=== PATIENT | female | born 1985 | race Caucasian/White ===

== ENCOUNTER 2020-04-28 15:46 | Inpatient (IN) ==
[2020-04-28 19:54] LABS: Hematocrit 38 % (35-47); Hemoglobin 17.2 g/dL (12.0-16.0); Mean Corpuscular HGB Conc 45 g/dL (31-36); Mean Corpuscular Hemoglobin 37 pg (27-31); Mean Corpuscular Volume 83 fL (80-97); Platelet Count 246 10^3/uL (150-450); Red Blood Count 4.65 10^6 /uL (3.70-4.87); Red Cell Distribution Width 14 % (10-15)
[2020-04-28 19:55] LABS: Nucleated Red Blood Cells % 0.1
[2020-04-28 20:05] LABS: HCG Pregnancy < 0.60 mIU/mL
[2020-04-28 20:13] LABS: ALT 55 U/L (7-52); Albumin 4.4 g/dL (3.2-5.2); Albumin/Globulin Ratio 2.1 (1-3); Alkaline Phosphatase 99 U/L (34-104); Calcium 9.6 mg/dL (8.6-10.3); Globulin 2.1 g/dL (2-4); Lipase 150 U/L (11.0-82.0); Total Protein 6.5 g/dL (6.4-8.9)
[2020-04-28 20:14] LABS: EGFR African American 110.1 (>60); Glucose 220 mg/dL (70-100)
[2020-04-28 20:50] LABS: Anion Gap 11 mmol/L (2-11); CO2 Carbon Dioxide 22 mmol/L (22-32)
[2020-04-28 21:02] LABS: ABS Basophils 0.1 10^3/ul (0-0.2); ABS Eosinophils 0.1 10^3/ul (0-0.6); ABS Lymphocytes 1.7 10^3/ul (1.0-4.8); ABS Monocytes 5.3 10^3/ul (0-0.8); ABS Neutrophils 4.7 10^3/ul (1.5-7.7)
[2020-04-28 21:13] LABS: BUN/Creatinine Ratio 10.8 (8-20); Blood Urea Nitrogen 8 mg/dL (6-24)
[2020-04-28 22:07] LABS: Albumin 4.2 g/dL (3.2-5.2); Albumin/Globulin Ratio 2.1 (1-3); Alkaline Phosphatase 99 U/L (34-104); Calcium 9.5 mg/dL (8.6-10.3); EGFR Non-African American 111.6 (>60); Glucose 196 mg/dL (70-100); HDL Cholesterol 15.7 mg/dL; Total Protein 6.2 g/dL (6.4-8.9)
[2020-04-28 23:05] LABS: Urine Appearance Cloudy; Urine Bilirubin Negative (Negative); Urine Blood 1+ (Negative); Urine Color Yellow; Urine Glucose 3+(>=500 mg/dL) (Negative); Urine Ketones 2+ (Negative); Urine Nitrite Negative (Negative); Urine Protein 1+(30 mg/dL) (Negative); Urine Specific Gravity 1.039 (1.010-1.030); Urine Urobilinogen Negative (Negative)
[2020-04-28 23:09] LABS: Urine Bacteria Absent (Absent); Urine Red Blood Cell 3+(>10/hpf) (Absent); Urine Squamous Epithelial Cell Present (Absent); Urine White Blood Cell Trace(0-5/hpf) (Absent)
[2020-04-28 23:13] LABS: ALT 38 U/L (7-52); Cholesterol 946 mg/dL; Triglycerides 8704 mg/dL
[2020-04-28 23:27] LABS: BUN/Creatinine Ratio 12.9 (8-20); Blood Urea Nitrogen 8 mg/dL (6-24)
[2020-04-28 23:44] LABS: LDL Cholesterol Direct 76 mg/dL
[2020-04-28] MEDS ORDERED: Iodixanol (CONTRAST) 320 MG/ML 100 ML SDV IV ONE (23:51)
[2020-04-29 00:33] LABS: Potassium, Whole Blood 3.7 mmol/L (3.4-4.5)
[2020-04-29] MEDS ORDERED: D5W 1/2 NS 1000 ml BAG 1,000 ML IV SCH (03:00)
[2020-04-29] MEDS ORDERED: Lactated Ringers 1000 ml BAG 2,000 ML IV ONE (03:00)
[2020-04-29] MEDS: Insulin Infusion 100unit/100mL 100 UNIT/100 ML BAG IV SCH ×3 (04:28→20:14)
[2020-04-29 04:56] LABS: C Reactive Protein 172.69 mg/L (<8.01); Magnesium 3.3 mg/dL (1.9-2.7)
[2020-04-29 07:19] LABS: Troponin I 0.01 ng/mL (<0.03)
[2020-04-29] MEDS: Enoxaparin 40 MG/0.4 ML SYR SUBCUT SCH (07:45)
[2020-04-29 10:42] LABS: Amylase 13 U/L (29-103); Anion Gap 8 mmol/L (2-11); CO2 Carbon Dioxide 20 mmol/L (22-32); Calcium 8.8 mg/dL (8.6-10.3); Chloride 97 mmol/L (101-111); EGFR African American 200.5 (>60); EGFR Non-African American 165.7 (>60); Glucose 270 mg/dL (70-100); Lipase 126 U/L (11.0-82.0); Sodium 125 mmol/L (135-145)
[2020-04-29] MEDS ORDERED: HYDROmorphone 1 MG/1 ML SYRINGE IV SLOW PU PRN (10:43)
[2020-04-29 11:10] LABS: BUN/Creatinine Ratio 11.4 (8-20); Blood Urea Nitrogen 5 mg/dL (6-24); Triglycerides 5224 mg/dL
[2020-04-29 12:26] LABS: Hematocrit 35 % (35-47); Hemoglobin 14.4 g/dL (12.0-16.0); Mean Corpuscular HGB Conc 41 g/dL (31-36); Mean Corpuscular Hemoglobin 34 pg (27-31); Mean Corpuscular Volume 83 fL (80-97); Mean Platelet Volume 9.9 fL (7.4-10.4); Platelet Count 196 10^3/uL (150-450); Red Blood Count 4.22 10^6 /uL (3.70-4.87); Red Cell Distribution Width 14 % (10-15); White Blood Count 11.5 10^3/uL (3.5-10.8)
[2020-04-29] MEDS: HYDROmorphone 1 MG/1 ML SYRINGE IV SLOW PU PRN ×2 (12:49→21:11)
[2020-04-29] MEDS ORDERED: D5W NS 0.9% 20Meq KCL 1000 ml 1,000 ML IV SCH ×3 (14:00→17:52)
[2020-04-29 17:21] LABS: CO2 Carbon Dioxide 14 mmol/L (22-32); Calcium 8.4 mg/dL (8.6-10.3); EGFR African American 261.1 (>60); EGFR Non-African American 215.8 (>60); Glucose 104 mg/dL (70-100); Sodium 129 mmol/L (135-145)
[2020-04-29 17:30] LABS: BUN/Creatinine Ratio 17.1 (8-20); Blood Urea Nitrogen 6 mg/dL (6-24)
[2020-04-29 17:53] LABS: CO2 Carbon Dioxide 15 mmol/L (22-32)
[2020-04-29] MEDS: Cefepime 2 GM in Dextrose 2 GM/50 ML BAG IV SCH (18:05)
[2020-04-29 18:20] LABS: Potassium, Whole Blood 4.7 mmol/L (3.4-4.5)
[2020-04-29 18:21] LABS: Triglycerides 4208 mg/dL
[2020-04-29 18:30] LABS: Anion Gap 15 mmol/L (2-11); Chloride 100 mmol/L (101-111)
[2020-04-29] MEDS ORDERED: D5NS 0.9% 1000 ml BAG 1,000 ML IV SCH (19:00)
[2020-04-29] MEDS ORDERED: Ondansetron 4 mg VIAL 2 MG/ML 2 ml VIAL IV PRN (19:15)
[2020-04-29] MEDS: Venlafaxine XR 75 mg PO SCH (20:23)
[2020-04-29] MEDS ORDERED: Venlafaxine XR 75 mg PO SCH (21:00)
[2020-04-29 23:17] LABS: Potassium, Whole Blood 4.6 mmol/L (3.4-4.5)
[2020-04-29 23:30] LABS: CO2 Carbon Dioxide 17 mmol/L (22-32); Calcium 8.3 mg/dL (8.6-10.3)
[2020-04-29 23:34] LABS: EGFR African American 205.9 (>60); EGFR Non-African American 170.2 (>60)
[2020-04-30 00:16] LABS: BUN/Creatinine Ratio 9.3 (8-20); Blood Urea Nitrogen 4 mg/dL (6-24)
[2020-04-30] MEDS: D5NS 0.9% 1000 ml BAG 1,000 ML IV SCH ×4 (00:30→21:28)
[2020-04-30 05:11] LABS: ABS Eosinophils 0.1 10^3/ul (0-0.6); ABS Lymphocytes 1.5 10^3/ul (1.0-4.8); ABS Monocytes 0.2 10^3/ul (0-0.8); Eosinophil % 1.5 %; Hematocrit 33 % (35-47); Hemoglobin 11.4 g/dL (12.0-16.0); Lymphocyte % 21.4 %; Mean Corpuscular HGB Conc 35 g/dL (31-36); Mean Corpuscular Hemoglobin 29 pg (27-31); Mean Corpuscular Volume 83 fL (80-97); Mean Platelet Volume 8.6 fL (7.4-10.4); Platelet Count 156 10^3/uL (150-450); Red Blood Count 3.97 10^6 /uL (3.70-4.87); Red Cell Distribution Width 14 % (10-15); White Blood Count 6.8 10^3/uL (3.5-10.8)
[2020-04-30 05:16] LABS: Potassium, Whole Blood 3.9 mmol/L (3.4-4.5)
[2020-04-30 05:34] LABS: Anion Gap 8 mmol/L (2-11); BUN/Creatinine Ratio 9.7 (8-20); Blood Urea Nitrogen 3 mg/dL (6-24); CO2 Carbon Dioxide 20 mmol/L (22-32); EGFR African American 300.4 (>60); EGFR Non-African American 248.2 (>60)
[2020-04-30 05:49] LABS: Triglycerides 1699 mg/dL
[2020-04-30] MEDS: Enoxaparin 40 MG/0.4 ML SYR SUBCUT SCH (05:52)
[2020-04-30] MEDS: Cefepime 2 GM in Dextrose 2 GM/50 ML BAG IV SCH (05:52)
[2020-04-30] MEDS: Insulin Infusion 100unit/100mL 100 UNIT/100 ML BAG IV SCH (18:20)
[2020-04-30] MEDS: Venlafaxine XR 75 mg PO SCH (20:15)
[2020-04-30] MEDS: OMEGA-3 FATTY ACID 1000 mg(NF) PO SCH (20:15)
[2020-04-30] MEDS: HYDROmorphone 1 MG/1 ML SYRINGE IV SLOW PU PRN (20:16)
[2020-05-01] MEDS: Insulin Infusion 100unit/100mL 100 UNIT/100 ML BAG IV SCH ×2 (03:17→16:49)
[2020-05-01 05:28] LABS: ABS Eosinophils 0.1 10^3/ul (0-0.6); ABS Lymphocytes 1.7 10^3/ul (1.0-4.8); ABS Monocytes 0.4 10^3/ul (0-0.8); ABS Neutrophils 5.9 10^3/ul (1.5-7.7); Eosinophil % 1.5 %; Hematocrit 35 % (35-47); Hemoglobin 12.4 g/dL (12.0-16.0); Lymphocyte % 21.1 %; Mean Corpuscular HGB Conc 35 g/dL (31-36); Mean Corpuscular Hemoglobin 29 pg (27-31); Mean Corpuscular Volume 82 fL (80-97); Mean Platelet Volume 8.8 fL (7.4-10.4); Nucleated Red Blood Cells % 0.1; Platelet Count 184 10^3/uL (150-450); Red Blood Count 4.31 10^6 /uL (3.70-4.87); Red Cell Distribution Width 14 % (10-15); White Blood Count 8.2 10^3/uL (3.5-10.8)
[2020-05-01 05:36] LABS: CO2 Carbon Dioxide 21 mmol/L (22-32); Calcium 8.5 mg/dL (8.6-10.3); Chloride 107 mmol/L (101-111); Sodium 137 mmol/L (135-145)
[2020-05-01 05:42] LABS: Blood Urea Nitrogen 2 mg/dL (6-24); EGFR Non-African American 257.8 (>60); Glucose 75 mg/dL (70-100); Triglycerides 974 mg/dL
[2020-05-01 05:43] LABS: Anion Gap 9 mmol/L (2-11)
[2020-05-01 05:44] LABS: Potassium 2.9 mmol/L (3.5-5.0)
[2020-05-01] MEDS: Enoxaparin 40 MG/0.4 ML SYR SUBCUT SCH (05:53)
[2020-05-01 06:08] LABS: Magnesium 1.7 mg/dL (1.9-2.7)
[2020-05-01] MEDS: D5NS 0.9% 1000 ml BAG 1,000 ML IV SCH ×2 (07:15→16:49)
[2020-05-01] MEDS ORDERED: Magnesium Sulfate 2 gm BAG 2 GM/50 ML BAG IVPB ONE (07:38)
[2020-05-01] MEDS ORDERED: Potassium Chlor 20 meq TAB.ER PO SCH (08:00)
[2020-05-01] MEDS: OMEGA-3 FATTY ACID 1000 mg(NF) PO SCH ×2 (08:02→21:22)
[2020-05-01] MEDS ORDERED: Influenza VAC *QUAD* 2020-21* 0.5 ML SYRINGE IM ONE (09:00)
[2020-05-01] MEDS ORDERED: Pneumococcal Vac 23-Polyvalent IM ONE (09:00)
[2020-05-01] MEDS: KCL 20 MEQ/100 ML IVPREMIX 20 MEQ/100 ML BAG IV SCH ×5 (09:36→19:31)
[2020-05-01 15:59] LABS: BUN/Creatinine Ratio 8.7 (8-20); Calcium 8.5 mg/dL (8.6-10.3); EGFR African American 190.5 (>60); EGFR Non-African American 157.4 (>60); Potassium 3.4 mmol/L (3.5-5.0)
[2020-05-01] MEDS ORDERED: Dextrose 50% Syringe 50 ml 25 GM/50 ML SYRINGE IV PUSH PRN (18:25)
[2020-05-01] MEDS ORDERED: Albuterol HFA INHALER 8 gm MDI INH PRN (20:55)
[2020-05-01] MEDS ORDERED: Insulin GLARGINE 100 un/ml 10 ml VIAL SUBCUT SCH (21:00)
[2020-05-01] MEDS: Venlafaxine XR 75 mg PO SCH (21:20)
[2020-05-02] MEDS: Enoxaparin 40 MG/0.4 ML SYR SUBCUT SCH (05:28)
[2020-05-02 05:35] LABS: BUN/Creatinine Ratio 12.2 (8-20); Calcium 9.2 mg/dL (8.6-10.3); EGFR African American 217.5 (>60); EGFR Non-African American 179.8 (>60); HDL Cholesterol 21.1 mg/dL; Potassium 3.6 mmol/L (3.5-5.0)
[2020-05-02] MEDS: OMEGA-3 FATTY ACID 1000 mg(NF) PO SCH (08:51)
[2020-05-02] MEDS ORDERED: Fluticasone/Vilanterol MDI(NF) 200/25 MDI INH SCH (09:00)
[2020-05-02 09:19] VITALS: BP 133/95
== END 2020-05-02 15:20 | disposition home or self-care (01) | DRG 439 ==
LOC: ED 15:46 → ICU 04-29 02:31
PROVIDERS: ADMIT Internal Medicine; ATTEND Internal Medicine